=== PATIENT | female | born 1935 | race African-American/Black ===

== ENCOUNTER 2016-12-28 22:28 | Emergency (ER) | payer MEDICARE, MEDICAID ==
[2016-12-28] MEDS ORDERED: Metoprolol Tartrate 50 MG TAB ONE (23:11)
[2016-12-28] MEDS ORDERED: Meloxicam 7.5 MG TAB PO SCH (23:15)
[2016-12-28] MEDS ORDERED: Levemir Flexpen 100 UNITS/ML PEN ONE (23:27)
[2016-12-28] MEDS ORDERED: Levemir Flexpen 100 UNITS/ML PEN SC SCH (23:45)
== END 2016-12-28 23:30 | disposition home or self-care (01) ==
LOC: NAV ERS 22:28
DX: E11.65 Type 2 diabetes mellitus with hyperglycemia (principal); I12.9 Hypertensive chronic kidney disease with stage 1 through stage 4 chronic kidney disease, or unspecified chronic kidney disease; M06.9 Rheumatoid arthritis, unspecified; I25.10 Atherosclerotic heart disease of native coronary artery without angina pectoris; E03.9 Hypothyroidism, unspecified; J44.9 Chronic obstructive pulmonary disease, unspecified; E11.22 Type 2 diabetes mellitus with diabetic chronic kidney disease; N18.9 Chronic kidney disease, unspecified; F31.9 Bipolar disorder, unspecified; Z79.4 Long term (current) use of insulin; Z86.73 Personal history of transient ischemic attack (TIA), and cerebral infarction without residual deficits; Z87.891 Personal history of nicotine dependence; Z79.82 Long term (current) use of aspirin; Z79.899 Other long term (current) drug therapy
CPT/HCPCS: 36416; 96372; J1815